=== PATIENT | female | born 1945 | race Caucasian/White ===

== ENCOUNTER 2022-06-26 12:48 | Inpatient (IN) | payer MEDICARE ==
[~2022-06-26] VITALS: Ht 162.6 cm; Wt 74.2 kg
[2022-06-26 13:14] LABS: BASOPHIL 0.2 % (0-2); EOSINOPHIL 0.9 % (0-7); HCT 30.9 % (37.0-47.0); HGB 10.2 g/dl (12.5-16.0); LYMPHOCYTE 7.7 % (15-48); MCH 30.5 pg (25.0-31.0); MCV 92.5 fL (78.0-100.0); MPV 9.2 fL (6.0-9.5); NEUTROPHIL 85.7 % (41-80); NRBC 0; PLT 381 K/uL (150-400); RBC 3.34 M/uL (4.20-5.40); RDW 14.2 % (11.5-14.0); WBC 11.9 K/uL (4.0-10.5)
[2022-06-26 13:34] LABS: ALBUMIN 2.8 g/dL (3.4-5.0); BILIRUBIN - TOTAL 0.5 mg/dL (0.2-1.0); BUN/CREAT RATIO (CALC) 11.4 RATIO; CREATININE 0.79 mg/dL (0.51-0.95); GLOBULIN (CALCULATION) 4.1 g/dL; POTASSIUM 3.5 mmol/L (3.5-5.1); TOTAL PROTEIN 6.9 g/dL (6.4-8.2)
[2022-06-26 13:35] LABS: INR 1.07 (0.9-1.2); PROTHROMBIN TIME 13.6 SECONDS (11.9-13.9)
[2022-06-26 13:36] LABS: PTT 31.2 SECONDS (24.9-34.6)
[2022-06-27] MEDS ORDERED: LEVOTHYROXINE125 MCG PO (01:56)
[2022-06-27] MEDS ORDERED: TAMOXIFEN CITRA20 MG PO (01:57)
[2022-06-27] MEDS ORDERED: AMLODIPINE BESYL5 MG PO (01:58)
[2022-06-27] MEDS ORDERED: HCTZ25 MG PO (01:59)
[2022-06-27] MEDS ORDERED: ATORVASTATIN CA20 MG PO (02:03)
[2022-06-27] MEDS ORDERED: VITAMIN D350 MC5 PO (02:07)
[2022-06-27] MEDS ORDERED: LASIX40 MG PO (02:09)
[2022-06-27] MEDS ORDERED: ASCORBIC ACID500 MG PO (02:15)
[2022-06-27] MEDS ORDERED: FLONASE ALLER15.8 ML (02:16)
[2022-06-27] MEDS ORDERED: ZYRTEC10 MG PO (02:17)
[2022-06-27] MEDS ORDERED: SINGULAIR10 MG PO (02:18)
[2022-06-27] MEDS ORDERED: POTASSIUM CHLO20 ME1 PO (02:20)
[2022-06-27 02:52] LABS: BILIRUBIN NEGATIVE (NEGATIVE); BLOOD TRACE-LYSED Ery/uL (NEGATIVE); CLARITY CLEAR (CLEAR); COLOR YELLOW (YELLOW); GLUCOSE (U) NORMAL (NORMAL); LEUKOCYTES 3+ Leu/uL (NEGATIVE); NITRITE NEGATIVE (NEGATIVE); PROTEIN NEGATIVE (NEGATIVE); SPECIFIC GRAVITY <=1.005 (1.001-1.030); UROBILINOGEN 0.2 mg/dL (0.2-1.0)
[2022-06-27 03:06] LABS: URINARY RBC RARE
[2022-06-27 06:05] LABS: BASOPHIL 0.4 % (0-2); EOSINOPHIL 1.9 % (0-7); HCT 26.5 % (37.0-47.0); HGB 8.5 g/dl (12.5-16.0); LYMPHOCYTE 14.8 % (15-48); MCH 30.2 pg (25.0-31.0); MCHC 32.1 g/dL (32.0-36.0); MCV 94.3 fL (78.0-100.0); MONOCYTE 7.1 % (0-12); MPV 9.4 fL (6.0-9.5); NEUTROPHIL 75.4 % (41-80); NRBC 0; PLT 296 K/uL (150-400); RBC 2.81 M/uL (4.20-5.40); RDW 14.6 % (11.5-14.0); WBC 7.7 K/uL (4.0-10.5)
[2022-06-27 07:00] LABS: IRON % SATURATION 7.5 %SAT (20-50)
[2022-06-27 07:39] LABS: ALBUMIN 2.5 g/dL (3.4-5.0); BILIRUBIN - TOTAL 0.4 mg/dL (0.2-1.0); BUN/CREAT RATIO (CALC) 7.5 RATIO; CREATININE 0.67 mg/dL (0.51-0.95); FOLIC ACID (SERUM) 40.8 ng/mL (8.6-58.9); GLOBULIN (CALCULATION) 3.4 g/dL; POTASSIUM 3.5 mmol/L (3.5-5.1); TOTAL PROTEIN 5.9 g/dL (6.4-8.2)
--- NOTE | 2022-06-27 14:21 | NUR ---
06/27/22 Ms. Humphries lives at home with her spouse. She has a rw which she rarely uses. Ms. Humphries is independent in the home and community. A referral was made to [facility] per her request.
[2022-06-28 06:33] LABS: HCT 33.3 % (37.0-47.0); HGB 10.4 g/dl (12.5-16.0); MCHC 31.2 g/dL (32.0-36.0); MPV 9.2 fL (6.0-9.5); RBC 3.47 M/uL (4.20-5.40); RDW 14.8 % (11.5-14.0); WBC 10.7 K/uL (4.0-10.5)
[2022-06-28 07:10] LABS: BUN/CREAT RATIO (CALC) 11.1 RATIO; CREATININE 0.63 mg/dL (0.51-0.95); POTASSIUM 4.7 mmol/L (3.5-5.1)
--- NOTE | 2022-06-28 08:20 | NUR ---
NIGHT RN REPORTS PT TEMP SPIKED TO 102.3 LAST NIGHT, SHORTLY FLIPPED TO AFIB RVR WITH HR IN 180S BEFORE CONVERTING BACK TO NSR. RN ALSO REPORTS THAT PT O2 DESAT TO 88% AND WAS TURNED TO 3.5 L OXYGEN. THIS AM PT VITALS ARE 175/55 HR 112 TEMP 99.5 RR 20 O2 96%. NOTIFIED OF EVENTS LAST NIGHT WITH CURRENT VITALS AND ORDERED ZOSYN, LACTATE ACID, BLOOD CULTURES TO BE DRAWN. FAMILY REQUEST TRANSFER TO THE [facility] WITH PT [facility] T[facility] WARM UP. NOTIFIED.
[2022-06-28 09:07] LABS: LACTIC ACID 2.4 mmol/L (0.4-1.9)
== END 2022-06-28 16:43 | disposition other institution (70) | DRG 862 ==
LOC: FER 12:48 → FTCU 23:21
PROVIDERS: Emergency Medicine; Nurse Practitioner; ADMIT Family Medicine
PROC: B24BZZZ Ultrasonography of Heart with Aorta (ICD-10-PCS; principal; 2022-06-26)
PROC: 3E03329 Introduction of Other Anti-infective into Peripheral Vein, Percutaneous Approach (ICD-10-PCS; 2022-06-26)
DX: T81.49XA Infection following a procedure, other surgical site, initial encounter (principal); A41.9 Sepsis, unspecified organism; J96.01 Acute respiratory failure with hypoxia; R65.20 Severe sepsis without septic shock; N17.9 Acute kidney failure, unspecified; E87.1 Hypo-osmolality and hyponatremia; N30.00 Acute cystitis without hematuria; I13.0 Hypertensive heart and chronic kidney disease with heart failure and stage 1 through stage 4 chronic kidney disease, or unspecified chronic kidney disease; T81.44XA Sepsis following a procedure, initial encounter; I48.91 Unspecified atrial fibrillation; N73.9 Female pelvic inflammatory disease, unspecified; I50.9 Heart failure, unspecified; N18.9 Chronic kidney disease, unspecified; D50.9 Iron deficiency anemia, unspecified; I05.1 Rheumatic mitral insufficiency; E03.9 Hypothyroidism, unspecified; R73.03 Prediabetes; M06.9 Rheumatoid arthritis, unspecified; E86.0 Dehydration; Z83.3 Family history of diabetes mellitus; Z86.73 Personal history of transient ischemic attack (TIA), and cerebral infarction without residual deficits; Z90.710 Acquired absence of both cervix and uterus; Z82.49 Family history of ischemic heart disease and other diseases of the circulatory system; Z79.899 Other long term (current) drug therapy; Y83.8 Other surgical procedures as the cause of abnormal reaction of the patient, or of later complication, without mention of misadventure at the time of the procedure; Z85.3 Personal history of malignant neoplasm of breast
CPT/HCPCS: 36415; 71045; 80048; 80053; 80061; 81001; 82607; 82728; 82746; 83036; 83540; 83550; 83605; 83735; 83880; 83935; 84145; 84300; 84443; 84484; 85025; 85610; 85730; 87040; 87088; 93005; 97161; 97165; G0378; J0696; J1940; J2543; J3370; J3475; J7030; J7040; J7050; J7120; U0002